=== PATIENT | female | born 1965 ===

== ENCOUNTER 2016-12-14 18:09 | Emergency (ER) | payer MEDICAID, OTHER ==
[2016-12-14] MEDS ORDERED: IBUPROFEN 600 MG TABLET ONE (18:40)
[2016-12-14] MEDS ORDERED: ACETAMINOPHEN 325 MG TABLET ONE (18:41)
--- NOTE | 2016-12-14 19:16 | RAD ---
WRIST- RIGHT 3 VIEWS COMPARISON: None HISTORY: Right wrist injury and pain. FINDINGS: Views: Right wrist PA, oblique, lateral. Bones: Normal Joints: Normal Soft tissues: Normal IMPRESSION: Negative 3 views of the right wrist.
--- NOTE | 2016-12-14 19:16 | RAD ---
HAND-RIGHT 3 VIEWS COMPARISON: None HISTORY: Injury. Pain at third metacarpal. FINDINGS: Views: Right hand PA, oblique, lateral Bones: Normal Joints: Normal Soft tissues: Normal IMPRESSION: Negative 3 views of the right hand.
== END 2016-12-14 20:19 | disposition home or self-care (01) ==
LOC: ED 18:09
DX: M25.531 Pain in right wrist (principal); X50.0XXA Overexertion from strenuous movement or load, initial encounter; Y93.H2 Activity, gardening and landscaping; Y92.9 Unspecified place or not applicable